=== PATIENT | male | born 1970 | race Caucasian/White ===

== ENCOUNTER 2017-09-21 15:53 | Inpatient (IN) | payer MEDICAID ==
[~2017-09-21] VITALS: Ht 160 cm; Wt 64.2 kg
[2017-09-21] MEDS ORDERED: SODIUM CHLORIDE FLUSH 10ML SYR IVF ONE (16:30)
[2017-09-21] MEDS ORDERED: ASPIRIN 81 MG TABLET CHEW PO ONE (16:30)
[2017-09-21 16:37] LABS: BASOPHILS % (AUTO) 0 % (0-1); EOSINOPHILS # (AUTO) 0.01 x10^3/uL (0-0.4); EOSINOPHILS % (AUTO) 0 % (1-7); LYMPHOCYTES # (AUTO) 0.66 x10^3/uL (1-3.4); LYMPHOCYTES % (AUTO) 6 % (22-44); MD NO; MEAN CORPUSCULAR HEMOGLOBIN 30.8 pg (27.5-34.5); MEAN CORPUSCULAR HGB CONC 34.5 g/dL (33.2-36.2); MEAN CORPUSCULAR VOLUME 89.2 fL (81-97); MEAN PLATELET VOLUME 7.8 fL (7.4-10.4); MONOCYTES # (AUTO) 0.71 x10^3/uL (0.2-0.8); MONOCYTES % (AUTO) 6 % (2-9); NEUTROPHILS # (AUTO) 9.79 x10^3/uL (1.8-6.8); NEUTROPHILS % (AUTO) 88 % (42-75); PLATELET COUNT 261 x10^3/uL (130-400); RED BLOOD COUNT 4.52 x10^6/uL (4.38-5.82); RED CELL DISTRIBUTION WIDTH 13.6 % (9.4-14.8)
[2017-09-21 16:50] LABS: ANION GAP 7 mmol/L (5-15); CALCIUM 8.5 mg/dL (8.5-10.1); CHLORIDE 97 mmol/L (98-107); CREATININE 0.87 mg/dL (0.7-1.3)
[2017-09-21 16:54] LABS: TROPONIN I < 0.015 ng/mL (0.000-0.045)
[2017-09-21] MEDS ORDERED: CEFTRIAXONE PMX 1GM/50ML 50 ML ONE (17:23)
[2017-09-21] MEDS ORDERED: ASPIRIN 81 MG TABLET CHEW ONE (17:24)
[2017-09-21] MEDS ORDERED: SODIUM CHLORIDE 0.9% 1,000 ML IV ONE (17:27)
[2017-09-21] MEDS ORDERED: SODIUM CHLORIDE 0.9% 1,000ML IVBOLUS ONE (17:30)
[2017-09-21] MEDS ORDERED: AZITHROMYCIN 500 MG in SODIUM CHLORIDE 0.9% 250 ML IVPB ONE (17:30)
[2017-09-21] MEDS ORDERED: CEFTRIAXONE PMX 1GM/50ML 50 ML IVPB ONE (17:30)
[2017-09-21] MEDS ORDERED: SODIUM CHLORIDE FLUSH 10ML SYR IVF PRN (17:30)
[2017-09-21] MEDS ORDERED: BISACODYL 10 MG SUPP PR PRN (18:00)
[2017-09-21] MEDS ORDERED: GUAIFENESIN/DM 200-20MG, 10ML UDC PO PRN (18:00)
[2017-09-21] MEDS ORDERED: CEFTRIAXONE PMX 1GM/50ML 50 ML IV SCH (18:00)
[2017-09-21] MEDS: NICOTINE 14MG/24 HR PATCH.TD24 TD SCH (18:00)
[2017-09-21] MEDS ORDERED: ONDANSETRON 2MG/ML, 2ML IVPush PRN (18:00)
[2017-09-21] MEDS ORDERED: ACETAMINOPHEN 325 MG TABLET PO PRN (18:00)
[2017-09-21] MEDS ORDERED: POLYETHYLENE GLYCOL 17 GM PACKET PO PRN (18:00)
[2017-09-21] MEDS: AZITHROMYCIN 500 MG in SODIUM CHLORIDE 0.9% 250 ML IV SCH (18:35)
[2017-09-21] MEDS: CEFTRIAXONE 1,000 MG in DEXTROSE 5% 50 ML IV SCH (22:00)
[2017-09-21 22:19] VITALS: BP 103/67
[2017-09-21] MEDS: SODIUM CHLORIDE 0.9% 1,000 ML IV SCH (23:00)
[2017-09-21] MEDS: HEPARIN 5,000 UNITS/ML, 1ML SQ SCH (23:20)
[2017-09-21] MEDS: KETOROLAC 30 MG/1 ML IVPush SCH (23:20)
[2017-09-22 00:48] LABS: MICROSCOPIC NOT IND
[2017-09-22 00:49] LABS: CULTURE INDICATED? NO
[2017-09-22 00:55] LABS: AMPHETAMINE SCREEN, URINE Positive (Negative); BARBITURATE SCREEN, URINE Negative (Negative); BENZODIAZEPINE SCREEN, URINE Negative (Negative); CANNABINOID SCREEN, URINE Positive (Negative); COCAINE SCREEN, URINE Negative (Negative); METHADONE SCREEN, URINE Negative (Negative); OPIATE SCREEN, URINE Negative (Negative)
[2017-09-22 03:41] VITALS: BP 96/67
[2017-09-22] MEDS ORDERED: PNEUMOCOCCAL 23 VACCINE IM-VACC ONE (05:30)
[2017-09-22] MEDS ORDERED: FLU VACC QS2017-18 (36MOS+) UP/PF 0.5 ML IM-VACC ONE (05:30)
[2017-09-22 05:37] LABS: BASOPHILS # (AUTO) 0.01 x10^3/uL (0-0.1); BASOPHILS % (AUTO) 0 % (0-1); EOSINOPHILS # (AUTO) 0.03 x10^3/uL (0-0.4); EOSINOPHILS % (AUTO) 0 % (1-7); LYMPHOCYTES # (AUTO) 1.24 x10^3/uL (1-3.4); LYMPHOCYTES % (AUTO) 11 % (22-44); MD NO; MEAN CORPUSCULAR HEMOGLOBIN 30.3 pg (27.5-34.5); MEAN CORPUSCULAR HGB CONC 33.3 g/dL (33.2-36.2); MEAN CORPUSCULAR VOLUME 90.9 fL (81-97); MEAN PLATELET VOLUME 8.2 fL (7.4-10.4); MONOCYTES # (AUTO) 1.25 x10^3/uL (0.2-0.8); MONOCYTES % (AUTO) 12 % (2-9); NEUTROPHILS # (AUTO) 8.37 x10^3/uL (1.8-6.8); NEUTROPHILS % (AUTO) 77 % (42-75); PLATELET COUNT 259 x10^3/uL (130-400); RED BLOOD COUNT 4.48 x10^6/uL (4.38-5.82); RED CELL DISTRIBUTION WIDTH 13.7 % (9.4-14.8)
[2017-09-22] MEDS: KETOROLAC 30 MG/1 ML IVPush SCH ×3 (05:47→18:20)
[2017-09-22 05:53] LABS: TROPONIN I < 0.015 ng/mL (0.000-0.045)
[2017-09-22 05:56] LABS: CHLORIDE 106 mmol/L (98-107)
[2017-09-22 06:08] LABS: ALANINE AMINOTRANSFERASE 31 U/L (12-78); ALBUMIN 2.5 g/dL (3.4-5.0); ALKALINE PHOSPHATASE 112 U/L (45-117); ANION GAP 9 mmol/L (5-15); BILIRUBIN,TOTAL 1.1 mg/dL (0.2-1.0); CALCIUM 8.3 mg/dL (8.5-10.1); CREATININE 0.77 mg/dL (0.7-1.3); TOTAL PROTEIN 6.9 g/dL (6.4-8.2)
[2017-09-22] MEDS: HEPARIN 5,000 UNITS/ML, 1ML SQ SCH ×2 (08:05→17:17)
[2017-09-22] MEDS: SENNA/DOCUSATE TABLET PO SCH (08:06)
[2017-09-22] MEDS: SODIUM CHLORIDE 0.9% 1,000 ML IV SCH ×2 (09:00→17:58)
[2017-09-22 10:26] VITALS: BP 96/66
[2017-09-22 12:23] VITALS: BP 100/66
[2017-09-22 12:31] LABS: ANION GAP 6 mmol/L (5-15); CALCIUM 7.9 mg/dL (8.5-10.1); CHLORIDE 108 mmol/L (98-107)
[2017-09-22 12:32] LABS: CREATININE 0.63 mg/dL (0.7-1.3)
[2017-09-22] MEDS: AZITHROMYCIN 500 MG in SODIUM CHLORIDE 0.9% 250 ML IV SCH (17:17)
[2017-09-22] MEDS: NICOTINE 14MG/24 HR PATCH.TD24 TD SCH (17:37)
[2017-09-22] MEDS: CEFTRIAXONE 1,000 MG in DEXTROSE 5% 50 ML IV SCH (18:20)
[2017-09-22 18:35] VITALS: BP 101/74
[2017-09-23] MEDS: HEPARIN 5,000 UNITS/ML, 1ML SQ SCH ×3 (01:13→17:21)
[2017-09-23] MEDS: KETOROLAC 30 MG/1 ML IVPush SCH ×4 (01:13→18:08)
[2017-09-23 01:42] VITALS: BP 110/75
[2017-09-23] MEDS: SODIUM CHLORIDE 0.9% 1,000 ML IV SCH ×2 (05:00→15:08)
[2017-09-23 05:21] LABS: BASOPHILS # (AUTO) 0.02 x10^3/uL (0-0.1); BASOPHILS % (AUTO) 0 % (0-1); EOSINOPHILS # (AUTO) 0.18 x10^3/uL (0-0.4); EOSINOPHILS % (AUTO) 3 % (1-7); LYMPHOCYTES # (AUTO) 1.12 x10^3/uL (1-3.4); LYMPHOCYTES % (AUTO) 16 % (22-44); MD NO; MEAN CORPUSCULAR HEMOGLOBIN 30.7 pg (27.5-34.5); MEAN CORPUSCULAR HGB CONC 33.9 g/dL (33.2-36.2); MEAN CORPUSCULAR VOLUME 90.7 fL (81-97); MEAN PLATELET VOLUME 8.1 fL (7.4-10.4); MONOCYTES % (AUTO) 7 % (2-9); NEUTROPHILS # (AUTO) 5.16 x10^3/uL (1.8-6.8); NEUTROPHILS % (AUTO) 74 % (42-75); PLATELET COUNT 266 x10^3/uL (130-400); RED BLOOD COUNT 4.28 x10^6/uL (4.38-5.82); RED CELL DISTRIBUTION WIDTH 14.1 % (9.4-14.8)
[2017-09-23 05:27] LABS: ANION GAP 6 mmol/L (5-15); CALCIUM 8.3 mg/dL (8.5-10.1); CHLORIDE 107 mmol/L (98-107); CREATININE 0.74 mg/dL (0.7-1.3)
[2017-09-23 07:40] VITALS: BP 99/61
[2017-09-23] MEDS: SENNA/DOCUSATE TABLET PO SCH (09:21)
[2017-09-23] MEDS ORDERED: AZIT500T5 PO (13:18)
[2017-09-23] MEDS ORDERED: AMOX1TAB64 PO (13:18)
[2017-09-23 13:50] VITALS: BP 107/86
[2017-09-23] MEDS: AZITHROMYCIN 500 MG in SODIUM CHLORIDE 0.9% 250 ML IV SCH (13:57)
[2017-09-23 14:46] VITALS: BP 125/70
[2017-09-23] MEDS: CEFTRIAXONE 1,000 MG in DEXTROSE 5% 50 ML IV SCH (15:08)
[2017-09-23 17:55] VITALS: BP 103/70
[2017-09-23] MEDS: NICOTINE 14MG/24 HR PATCH.TD24 TD SCH (18:08)
== END 2017-09-23 18:10 | disposition home or self-care (01) | DRG 871 ==
LOC: ED 17:26 → EDIP 17:27 → ED 17:30 → 4NOR 21:45
PROVIDERS: ADMIT Hospitalist; ATTEND Hospitalist
DX: A41.9 Sepsis, unspecified organism (principal); J18.1 Lobar pneumonia, unspecified organism; E44.0 Moderate protein-calorie malnutrition; E87.1 Hypo-osmolality and hyponatremia; F12.90 Cannabis use, unspecified, uncomplicated; F15.90 Other stimulant use, unspecified, uncomplicated; F17.210 Nicotine dependence, cigarettes, uncomplicated; I45.10 Unspecified right bundle-branch block; F19.10 Other psychoactive substance abuse, uncomplicated; Z80.1 Family history of malignant neoplasm of trachea, bronchus and lung; Z59.0 Homelessness; Z79.82 Long term (current) use of aspirin; Z83.3 Family history of diabetes mellitus; Z23 Encounter for immunization; Z68.25 Body mass index [BMI] 25.0-25.9, adult
CPT/HCPCS: 36415; 71045; 80048; 80053; 80307; 81003; 82040; 83605; 84145; 84484; 85025; 87040; 90686; 90732; 93005; 99285; J0456; J0696; J1644; J1885; J7030; J7050

== ENCOUNTER 2018-07-24 15:49 | Inpatient (IN) | payer MEDICAID ==
[~2018-07-24] VITALS: Ht 162.6 cm; Wt 64.5 kg
[~2018-07-24 15:49] MED LIST: AMOX1TAB64 PO; AZIT500T5 PO
[2018-07-24] MEDS ORDERED: ALBUTEROL SULFATE 2.5 MG/3 ML ONE (16:32)
[2018-07-24 16:35] LABS: BASOPHILS % (AUTO) 0 % (0-1); EOSINOPHILS % (AUTO) 0 % (1-7); LYMPHOCYTES # (AUTO) 0.41 x10^3/uL (1-3.4); LYMPHOCYTES % (AUTO) 8 % (22-44); MD NO; MEAN CORPUSCULAR HEMOGLOBIN 29.3 pg (27.5-34.5); MEAN CORPUSCULAR HGB CONC 34.1 g/dL (33.2-36.2); MEAN CORPUSCULAR VOLUME 85.8 fL (81-97); MEAN PLATELET VOLUME 8.1 fL (7.4-10.4); MONOCYTES # (AUTO) 0.06 x10^3/uL (0.2-0.8); MONOCYTES % (AUTO) 1 % (2-9); NEUTROPHILS # (AUTO) 4.43 x10^3/uL (1.8-6.8); NEUTROPHILS % (AUTO) 90 % (42-75); PLATELET COUNT 226 x10^3/uL (130-400); RED BLOOD COUNT 4.95 x10^6/uL (4.38-5.82); RED CELL DISTRIBUTION WIDTH 15.4 % (9.4-14.8)
[2018-07-24 16:43] LABS: ANION GAP 11 mmol/L (5-15); CALCIUM 8.2 mg/dL (8.5-10.1); CHLORIDE 94 mmol/L (98-107); CREATININE 1.82 mg/dL (0.7-1.3)
[2018-07-24] MEDS ORDERED: CEFTRIAXONE PMX 1GM/50ML 50 ML IV ONE (17:00)
[2018-07-24] MEDS ORDERED: CEFTRIAXONE PMX 1GM/50ML 50 ML ONE (17:05)
[2018-07-24] MEDS ORDERED: SODIUM CHLORIDE 0.9% 1,000ML IVBOLUS ONE ×2 (17:30→20:00)
[2018-07-24] MEDS ORDERED: OMNIPAQUE 350 MG/ML, 100ML BOTTLE ONE (17:40)
[2018-07-24] MEDS ORDERED: ONDANSETRON 2MG/ML, 2ML IVPush PRN (18:00)
[2018-07-24] MEDS: LACTATED RINGERS 1,000 ML IV SCH (18:00)
[2018-07-24] MEDS ORDERED: LABETALOL 5MG/ML, 20ML IVPush PRN (18:00)
[2018-07-24] MEDS ORDERED: ONDANSETRON ODT 4 MG PO PRN (18:00)
[2018-07-24] MEDS ORDERED: POLYETHYLENE GLYCOL 17 GM PACKET PO PRN (18:00)
[2018-07-24 18:18] VITALS: BP 103/65
[2018-07-24 18:23] VITALS: BP 103/65
[2018-07-24] MEDS ORDERED: VANCOMYCIN PER PHARMACY MC PRN (18:30)
[2018-07-24] MEDS ORDERED: NICOTINE 14MG/24 HR PATCH.TD24 TD ONE (18:30)
[2018-07-24] MEDS ORDERED: CEFTRIAXONE PMX 2GM/50ML 50 ML IV SCH (18:30)
[2018-07-24] MEDS: PIPERACILLIN/TAZO/PMX 3.375GM 50 ML IV SCH (18:43)
[2018-07-24] MEDS: methylPREDNISolone SOD SUCC 125 MG/2 ML IVPush SCH (18:43)
[2018-07-24] MEDS ORDERED: PHARMACOKINETIC CONSULTATION MC ONE (19:30)
[2018-07-24] MEDS ORDERED: PHARMACOKINETIC MONITORING MC PRN (19:30)
[2018-07-24 19:45] VITALS: BP 76/45
[2018-07-24] MEDS ORDERED: VANCOMYCIN PMX 1GM/200ML 200 ML IVPB SCH (20:00)
[2018-07-24] MEDS: ACETAMINOPHEN 325 MG TABLET PO PRN (20:13)
[2018-07-24 20:24] VITALS: BP 90/63
[2018-07-24] MEDS ORDERED: DOXYCYCLINE 100MG TABLET PO SCH (21:00)
[2018-07-24 21:09] VITALS: BP 90/62
[2018-07-25] MEDS: PIPERACILLIN/TAZO/PMX 3.375GM 50 ML IV SCH ×4 (00:33→18:40)
[2018-07-25 02:26] VITALS: BP 97/68
[2018-07-25] MEDS: methylPREDNISolone SOD SUCC 125 MG/2 ML IVPush SCH (02:29)
[2018-07-25 05:26] LABS: MEAN CORPUSCULAR HEMOGLOBIN 29.1 pg (27.5-34.5); MEAN CORPUSCULAR HGB CONC 33.9 g/dL (33.2-36.2); MEAN PLATELET VOLUME 7.9 fL (7.4-10.4); PLATELET COUNT 201 x10^3/uL (130-400); RED BLOOD COUNT 4.43 x10^6/uL (4.38-5.82); RED CELL DISTRIBUTION WIDTH 15.4 % (9.4-14.8)
[2018-07-25 05:30] LABS: ALANINE AMINOTRANSFERASE 14 U/L (12-78); ALBUMIN 2.5 g/dL (3.4-5.0); ANION GAP 8 mmol/L (5-15); CALCIUM 7.9 mg/dL (8.5-10.1); CHLORIDE 102 mmol/L (98-107)
[2018-07-25 05:32] LABS: ALKALINE PHOSPHATASE 49 U/L (45-117); BILIRUBIN,TOTAL 0.6 mg/dL (0.2-1.0); TOTAL PROTEIN 6.4 g/dL (6.4-8.2)
[2018-07-25 06:02] LABS: MD YES
[2018-07-25 06:06] LABS: BAND#(MANUAL) 3.03 x10^3/uL; BANDS%(MANUAL) 37 % (0-7); LYMPH#(MANUAL) 0.74 x10^3/uL (1-3.4); LYMPHS% (MANUAL) 9 % (22-44); MONOS#(MANUAL) 0.08 x10^3/uL (0.3-2.7); MONOS% (MANUAL) 1 % (2-9); SEG#(MANUAL) 4.35 x10^3/uL (1.8-6.8); SEGS% (MANUAL) 53 % (42-75)
[2018-07-25 06:10] LABS: <PLT MORPHOLOGY> NORMAL PLT MORPH; TOXIC GRAN 1+
[2018-07-25 06:11] LABS: <PLATELET ESTIMATE> ADEQUATE
[2018-07-25] MEDS: LACTATED RINGERS 1,000 ML IV SCH (07:12)
[2018-07-25 07:52] VITALS: BP 90/61
[2018-07-25] MEDS: ALBUTEROL/IPRATROPIUM 2.5MG/0.5MG, 3 ML NPPB SCH ×4 (08:00→20:00)
[2018-07-25] MEDS: SENNA/DOCUSATE TABLET PO SCH (08:07)
[2018-07-25] MEDS: PANTOPRAZOLE 40 MG IV IVPush SCH (08:07)
[2018-07-25 08:20] LABS: RAPID INFLUENZA A Negative (Negative); RAPID INFLUENZA B Negative (Negative)
[2018-07-25] MEDS ORDERED: LACTATED RINGERS 1,000 ML IV SCH ×2 (09:00→18:00)
[2018-07-25 09:32] VITALS: BP 87/56
[2018-07-25] MEDS: SODIUM CHLORIDE 0.9% 1,000 ML IV SCH ×4 (10:00→20:15)
[2018-07-25 10:15] LABS: MICROSCOPIC INDICATED
[2018-07-25 10:21] LABS: AMPHETAMINE SCREEN, URINE Positive (Negative); BARBITURATE SCREEN, URINE Negative (Negative); BENZODIAZEPINE SCREEN, URINE Negative (Negative); CANNABINOID SCREEN, URINE Negative (Negative); COCAINE SCREEN, URINE Negative (Negative); METHADONE SCREEN, URINE Negative (Negative); OPIATE SCREEN, URINE Negative (Negative)
[2018-07-25 10:22] LABS: CULTURE INDICATED? NO
[2018-07-25 12:20] VITALS: BP 97/61
[2018-07-25 13:39] VITALS: BP 106/72
[2018-07-25] MEDS: VANCOMYCIN PMX 1GM/200ML 200 ML IVPB SCH (14:31)
[2018-07-25 19:57] VITALS: BP 102/66
[2018-07-26] MEDS: PIPERACILLIN/TAZO/PMX 3.375GM 50 ML IV SCH ×4 (00:43→18:07)
[2018-07-26 01:13] VITALS: BP 100/67
[2018-07-26] MEDS: VANCOMYCIN PMX 1GM/200ML 200 ML IVPB SCH ×2 (02:17→14:59)
[2018-07-26] MEDS: SODIUM CHLORIDE 0.9% 1,000 ML IV SCH ×2 (06:17→13:23)
[2018-07-26] MEDS: ALBUTEROL/IPRATROPIUM 2.5MG/0.5MG, 3 ML NPPB SCH ×4 (07:00→20:10)
[2018-07-26 07:30] VITALS: BP 113/76
[2018-07-26] MEDS: PANTOPRAZOLE 40 MG IV IVPush SCH (08:49)
[2018-07-26] MEDS: SENNA/DOCUSATE TABLET PO SCH (08:49)
[2018-07-26] MEDS: HEPARIN 5,000 UNITS/ML, 1ML SQ SCH ×2 (08:56→16:53)
[2018-07-26] MEDS: LACTOBACILLUS CHEW TABLET PO SCH ×2 (08:57→21:58)
[2018-07-26 09:48] LABS: ANION GAP 6 mmol/L (5-15); CALCIUM 8.5 mg/dL (8.5-10.1); CHLORIDE 111 mmol/L (98-107); CREATININE 0.81 mg/dL (0.7-1.3)
[2018-07-26 12:43] VITALS: BP 118/77
[2018-07-26 20:07] VITALS: BP 107/73
[2018-07-27] MEDS: PIPERACILLIN/TAZO/PMX 3.375GM 50 ML IV SCH ×4 (00:47→19:17)
[2018-07-27] MEDS: HEPARIN 5,000 UNITS/ML, 1ML SQ SCH ×4 (00:47→23:59)
[2018-07-27] MEDS: SODIUM CHLORIDE 0.9% 1,000 ML IV SCH ×4 (00:48→23:58)
[2018-07-27] MEDS: VANCOMYCIN PMX 1GM/200ML 200 ML IVPB SCH ×2 (02:21→13:56)
[2018-07-27 02:32] VITALS: BP 119/78
[2018-07-27 05:57] LABS: ANION GAP 5 mmol/L (5-15); CALCIUM 8.6 mg/dL (8.5-10.1); CHLORIDE 108 mmol/L (98-107); CREATININE 0.68 mg/dL (0.7-1.3)
[2018-07-27 06:25] LABS: BASOPHILS # (AUTO) 0.02 x10^3/uL (0-0.1); BASOPHILS % (AUTO) 0 % (0-1); EOSINOPHILS % (AUTO) 0 % (1-7); LYMPHOCYTES # (AUTO) 1.23 x10^3/uL (1-3.4); LYMPHOCYTES % (AUTO) 16 % (22-44); MD NO; MEAN CORPUSCULAR HGB CONC 33.6 g/dL (33.2-36.2); MEAN CORPUSCULAR VOLUME 86.3 fL (81-97); MEAN PLATELET VOLUME 8.5 fL (7.4-10.4); MONOCYTES # (AUTO) 0.42 x10^3/uL (0.2-0.8); MONOCYTES % (AUTO) 5 % (2-9); NEUTROPHILS # (AUTO) 6.06 x10^3/uL (1.8-6.8); NEUTROPHILS % (AUTO) 79 % (42-75); PLATELET COUNT 243 x10^3/uL (130-400); RED BLOOD COUNT 3.95 x10^6/uL (4.38-5.82); RED CELL DISTRIBUTION WIDTH 15.4 % (9.4-14.8)
[2018-07-27] MEDS: ALBUTEROL/IPRATROPIUM 2.5MG/0.5MG, 3 ML NPPB SCH ×4 (07:00→20:00)
[2018-07-27 07:30] VITALS: BP 141/89
[2018-07-27] MEDS: SENNA/DOCUSATE TABLET PO SCH (09:00)
[2018-07-27] MEDS: PANTOPRAZOLE 40 MG IV IVPush SCH (09:45)
[2018-07-27] MEDS: LACTOBACILLUS CHEW TABLET PO SCH ×2 (09:45→20:38)
[2018-07-27] MEDS: NICOTINE 14MG/24 HR PATCH.TD24 TD SCH (12:05)
[2018-07-27 15:34] VITALS: BP 134/90
[2018-07-27 19:53] VITALS: BP 139/90
[2018-07-28] MEDS: PIPERACILLIN/TAZO/PMX 3.375GM 50 ML IV SCH ×4 (00:34→18:31)
[2018-07-28 01:16] VITALS: BP 154/93
[2018-07-28] MEDS: VANCOMYCIN PMX 1GM/200ML 200 ML IVPB SCH (02:40)
[2018-07-28 07:37] VITALS: BP 133/83
[2018-07-28] MEDS: ALBUTEROL/IPRATROPIUM 2.5MG/0.5MG, 3 ML NPPB SCH ×4 (07:45→19:57)
[2018-07-28] MEDS: SENNA/DOCUSATE TABLET PO SCH (09:00)
[2018-07-28] MEDS: HEPARIN 5,000 UNITS/ML, 1ML SQ SCH ×2 (09:25→16:27)
[2018-07-28] MEDS: LACTOBACILLUS CHEW TABLET PO SCH ×2 (09:25→21:49)
[2018-07-28] MEDS: PANTOPRAZOLE 40 MG IV IVPush SCH (09:25)
[2018-07-28] MEDS: SODIUM CHLORIDE 0.9% 1,000 ML IV SCH ×2 (09:31→16:28)
[2018-07-28] MEDS: NICOTINE 14MG/24 HR PATCH.TD24 TD SCH (12:30)
[2018-07-28 12:57] VITALS: BP 139/92
[2018-07-28 19:38] VITALS: BP 133/94
[2018-07-29] MEDS: HEPARIN 5,000 UNITS/ML, 1ML SQ SCH ×3 (00:09→16:02)
[2018-07-29] MEDS: PIPERACILLIN/TAZO/PMX 3.375GM 50 ML IV SCH ×3 (00:09→18:59)
[2018-07-29] MEDS: SODIUM CHLORIDE 0.9% 1,000 ML IV SCH ×2 (00:09→06:15)
[2018-07-29 02:20] VITALS: BP 151/93
[2018-07-29] MEDS: ALBUTEROL/IPRATROPIUM 2.5MG/0.5MG, 3 ML NPPB SCH (07:48)
[2018-07-29] MEDS: PANTOPRAZOLE 40 MG IV IVPush SCH (07:56)
[2018-07-29] MEDS: SENNA/DOCUSATE TABLET PO SCH (07:57)
[2018-07-29] MEDS: LACTOBACILLUS CHEW TABLET PO SCH ×2 (07:57→20:57)
[2018-07-29 08:00] VITALS: BP 136/92
[2018-07-29] MEDS: NICOTINE 14MG/24 HR PATCH.TD24 TD SCH (11:33)
[2018-07-29 13:25] VITALS: BP 136/77
[2018-07-29] MEDS ORDERED: PIPERACILLIN/TAZO/PMX 3.375GM 50 ML IV ONE (13:30)
[2018-07-29 19:14] VITALS: BP 151/96
[2018-07-30] MEDS: HEPARIN 5,000 UNITS/ML, 1ML SQ SCH ×3 (00:05→16:31)
[2018-07-30] MEDS: PIPERACILLIN/TAZO/PMX 3.375GM 50 ML IV SCH ×4 (00:05→18:34)
[2018-07-30 01:39] VITALS: BP 150/94
[2018-07-30] MEDS ORDERED: ALBUTEROL/IPRATROPIUM 2.5MG/0.5MG, 3 ML NPPB SCH (07:00)
[2018-07-30 07:10] VITALS: BP 166/96
[2018-07-30] MEDS: SENNA/DOCUSATE TABLET PO SCH (09:00)
[2018-07-30] MEDS: PANTOPRAZOLE 40 MG IV IVPush SCH (09:06)
[2018-07-30] MEDS: LACTOBACILLUS CHEW TABLET PO SCH ×2 (09:06→20:26)
[2018-07-30] MEDS: NICOTINE 14MG/24 HR PATCH.TD24 TD SCH (11:36)
[2018-07-30 12:00] VITALS: BP 150/91
[2018-07-30 19:47] VITALS: BP 136/87
[2018-07-31] MEDS: HEPARIN 5,000 UNITS/ML, 1ML SQ SCH ×3 (01:03→16:00)
[2018-07-31] MEDS: PIPERACILLIN/TAZO/PMX 3.375GM 50 ML IV SCH ×4 (01:03→18:27)
[2018-07-31 01:47] VITALS: BP 128/81
[2018-07-31] MEDS ORDERED: ALBUTEROL/IPRATROPIUM 2.5MG/0.5MG, 3 ML NPPB PRN (04:00)
[2018-07-31 07:07] VITALS: BP 105/69
[2018-07-31] MEDS: PANTOPRAZOLE 40 MG IV IVPush SCH (07:30)
[2018-07-31] MEDS: SENNA/DOCUSATE TABLET PO SCH (08:05)
[2018-07-31] MEDS: LACTOBACILLUS CHEW TABLET PO SCH ×2 (08:11→21:19)
[2018-07-31] MEDS: NICOTINE 14MG/24 HR PATCH.TD24 TD SCH (11:35)
[2018-07-31 12:27] VITALS: BP 115/77
[2018-07-31 19:51] VITALS: BP 109/72
[2018-08-01] MEDS: PIPERACILLIN/TAZO/PMX 3.375GM 50 ML IV SCH ×4 (01:02→18:06)
[2018-08-01 01:47] VITALS: BP 132/78
[2018-08-01] MEDS: PANTOPROZOLE 40MG TABLET PO SCH (06:21)
[2018-08-01] MEDS: HEPARIN 5,000 UNITS/ML, 1ML SQ SCH ×3 (08:00→16:00)
[2018-08-01 08:30] VITALS: BP 118/73
[2018-08-01] MEDS: SENNA/DOCUSATE TABLET PO SCH (09:00)
[2018-08-01] MEDS: LACTOBACILLUS CHEW TABLET PO SCH ×2 (10:03→20:02)
[2018-08-01] MEDS: NICOTINE 14MG/24 HR PATCH.TD24 TD SCH (10:04)
[2018-08-01 11:15] LABS: % IRON SATURATION 13 % (20-55); IRON LEVEL 60 mcg/dL (65-175); TOTAL IRON BINDING CAPACITY 463 mcg/dL (250-450)
[2018-08-01] MEDS: IRON SUCROSE COMPLEX 100MG/5ML IV SCH (13:53)
[2018-08-01 14:30] VITALS: BP 113/71
[2018-08-01 19:49] VITALS: BP 122/80
[2018-08-01] MEDS ORDERED: EYE WASH SOLUTION 120ML EACHEYE PRN (20:30)
[2018-08-02] MEDS: PIPERACILLIN/TAZO/PMX 3.375GM 50 ML IV SCH ×6 (00:22→23:20)
[2018-08-02 00:59] VITALS: BP 106/62
[2018-08-02] MEDS: ACETAMINOPHEN 325 MG TABLET PO PRN ×3 (02:56→18:35)
[2018-08-02] MEDS: PANTOPROZOLE 40MG TABLET PO SCH (06:06)
[2018-08-02 07:30] VITALS: BP 101/61
[2018-08-02] MEDS: HEPARIN 5,000 UNITS/ML, 1ML SQ SCH ×3 (08:00→16:00)
[2018-08-02] MEDS: IRON SUCROSE COMPLEX 100MG/5ML IV SCH (08:26)
[2018-08-02] MEDS: LACTOBACILLUS CHEW TABLET PO SCH ×2 (08:26→21:31)
[2018-08-02] MEDS: SENNA/DOCUSATE TABLET PO SCH (08:34)
[2018-08-02] MEDS: NICOTINE 14MG/24 HR PATCH.TD24 TD SCH (13:16)
[2018-08-02 14:21] LABS: CULTURE INDICATED? NO; MICROSCOPIC AUTO
[2018-08-02 14:30] VITALS: BP 102/66
[2018-08-02] MEDS: KETOROLAC 30 MG/1 ML IVPush PRN (14:38)
[2018-08-02 14:53] LABS: ALANINE AMINOTRANSFERASE 30 U/L (12-78); ALBUMIN 2.8 g/dL (3.4-5.0); ANION GAP 8 mmol/L (5-15); CALCIUM 8.2 mg/dL (8.5-10.1); CHLORIDE 103 mmol/L (98-107); CREATININE 0.95 mg/dL (0.7-1.3)
[2018-08-02 14:55] LABS: ALKALINE PHOSPHATASE 92 U/L (45-117); BILIRUBIN,TOTAL 0.2 mg/dL (0.2-1.0); TOTAL PROTEIN 7.3 g/dL (6.4-8.2)
[2018-08-02 14:58] LABS: BASOPHILS # (AUTO) 0.02 x10^3/uL (0-0.1); BASOPHILS % (AUTO) 0 % (0-1); EOSINOPHILS # (AUTO) 0.06 x10^3/uL (0-0.4); EOSINOPHILS % (AUTO) 0 % (1-7); LYMPHOCYTES % (AUTO) 7 % (22-44); MD NO; MEAN CORPUSCULAR HEMOGLOBIN 28.6 pg (27.5-34.5); MEAN CORPUSCULAR HGB CONC 33.6 g/dL (33.2-36.2); MEAN CORPUSCULAR VOLUME 85.1 fL (81-97); MONOCYTES # (AUTO) 0.87 x10^3/uL (0.2-0.8); MONOCYTES % (AUTO) 6 % (2-9); NEUTROPHILS % (AUTO) 86 % (42-75); PLATELET COUNT 486 x10^3/uL (130-400); RED BLOOD COUNT 4.49 x10^6/uL (4.38-5.82); RED CELL DISTRIBUTION WIDTH 15.4 % (9.4-14.8)
[2018-08-02 19:35] VITALS: BP 115/71
[2018-08-03] MEDS: HEPARIN 5,000 UNITS/ML, 1ML SQ SCH ×3 (00:35→16:00)
[2018-08-03 01:06] VITALS: BP 105/70
[2018-08-03] MEDS: KETOROLAC 30 MG/1 ML IVPush PRN ×3 (02:25→21:20)
[2018-08-03] MEDS: ACETAMINOPHEN 325 MG TABLET PO PRN (02:26)
[2018-08-03] MEDS: PIPERACILLIN/TAZO/PMX 3.375GM 50 ML IV SCH (05:17)
[2018-08-03] MEDS: PANTOPROZOLE 40MG TABLET PO SCH (06:26)
[2018-08-03] MEDS: SENNA/DOCUSATE TABLET PO SCH (08:08)
[2018-08-03] MEDS: LACTOBACILLUS CHEW TABLET PO SCH ×2 (08:09→19:53)
[2018-08-03] MEDS: IRON SUCROSE COMPLEX 100MG/5ML IV SCH (08:09)
[2018-08-03 08:27] LABS: BASOPHILS # (AUTO) 0.03 x10^3/uL (0-0.1); BASOPHILS % (AUTO) 0 % (0-1); EOSINOPHILS % (AUTO) 1 % (1-7); LYMPHOCYTES # (AUTO) 1.35 x10^3/uL (1-3.4); LYMPHOCYTES % (AUTO) 11 % (22-44); MD NO; MEAN CORPUSCULAR HEMOGLOBIN 28.4 pg (27.5-34.5); MEAN CORPUSCULAR HGB CONC 33.5 g/dL (33.2-36.2); MEAN CORPUSCULAR VOLUME 84.8 fL (81-97); MEAN PLATELET VOLUME 6.8 fL (7.4-10.4); MONOCYTES # (AUTO) 0.89 x10^3/uL (0.2-0.8); MONOCYTES % (AUTO) 7 % (2-9); NEUTROPHILS # (AUTO) 9.62 x10^3/uL (1.8-6.8); NEUTROPHILS % (AUTO) 80 % (42-75); PLATELET COUNT 508 x10^3/uL (130-400); RED BLOOD COUNT 4.53 x10^6/uL (4.38-5.82); RED CELL DISTRIBUTION WIDTH 16.1 % (9.4-14.8)
[2018-08-03 08:30] VITALS: BP 114/71
[2018-08-03 08:37] LABS: ALBUMIN 2.6 g/dL (3.4-5.0); ANION GAP 5 mmol/L (5-15); CALCIUM 9.1 mg/dL (8.5-10.1); CHLORIDE 106 mmol/L (98-107)
[2018-08-03 08:41] LABS: ALANINE AMINOTRANSFERASE 26 U/L (12-78); ALKALINE PHOSPHATASE 75 U/L (45-117); BILIRUBIN,TOTAL 0.4 mg/dL (0.2-1.0); CREATININE 0.93 mg/dL (0.7-1.3); TOTAL PROTEIN 6.7 g/dL (6.4-8.2)
[2018-08-03] MEDS: CEFTRIAXONE PMX 1GM/50ML 50 ML IV SCH (11:40)
[2018-08-03] MEDS: NICOTINE 14MG/24 HR PATCH.TD24 TD SCH (11:41)
[2018-08-03 14:00] VITALS: BP 100/64
[2018-08-03 18:30] VITALS: BP 102/65
[2018-08-04 00:55] VITALS: BP 118/76
[2018-08-04] MEDS: PANTOPROZOLE 40MG TABLET PO SCH (05:52)
[2018-08-04 06:05] LABS: BASOPHILS # (AUTO) 0.03 x10^3/uL (0-0.1); BASOPHILS % (AUTO) 1 % (0-1); EOSINOPHILS # (AUTO) 0.13 x10^3/uL (0-0.4); EOSINOPHILS % (AUTO) 2 % (1-7); LYMPHOCYTES # (AUTO) 1.38 x10^3/uL (1-3.4); LYMPHOCYTES % (AUTO) 18 % (22-44); MD NO; MEAN CORPUSCULAR HEMOGLOBIN 29.1 pg (27.5-34.5); MEAN CORPUSCULAR HGB CONC 33.9 g/dL (33.2-36.2); MEAN CORPUSCULAR VOLUME 85.7 fL (81-97); MONOCYTES # (AUTO) 0.71 x10^3/uL (0.2-0.8); MONOCYTES % (AUTO) 9 % (2-9); NEUTROPHILS # (AUTO) 5.34 x10^3/uL (1.8-6.8); NEUTROPHILS % (AUTO) 70 % (42-75); PLATELET COUNT 507 x10^3/uL (130-400); RED BLOOD COUNT 4.22 x10^6/uL (4.38-5.82); RED CELL DISTRIBUTION WIDTH 15.8 % (9.4-14.8)
[2018-08-04 06:25] LABS: ALBUMIN 2.8 g/dL (3.4-5.0); ANION GAP 8 mmol/L (5-15); CHLORIDE 105 mmol/L (98-107)
[2018-08-04 06:30] LABS: ALANINE AMINOTRANSFERASE 27 U/L (12-78); ALKALINE PHOSPHATASE 80 U/L (45-117); BILIRUBIN,TOTAL 0.1 mg/dL (0.2-1.0); CREATININE 0.85 mg/dL (0.7-1.3); TOTAL PROTEIN 7.1 g/dL (6.4-8.2)
[2018-08-04 07:55] VITALS: BP 135/79
[2018-08-04] MEDS: HEPARIN 5,000 UNITS/ML, 1ML SQ SCH ×4 (08:00→22:24)
[2018-08-04] MEDS: SENNA/DOCUSATE TABLET PO SCH (08:02)
[2018-08-04] MEDS: IRON SUCROSE COMPLEX 100MG/5ML IV SCH (08:30)
[2018-08-04] MEDS: LACTOBACILLUS CHEW TABLET PO SCH ×2 (08:30→19:47)
[2018-08-04] MEDS: CEFTRIAXONE PMX 1GM/50ML 50 ML IV SCH (11:16)
[2018-08-04] MEDS: NICOTINE 14MG/24 HR PATCH.TD24 TD SCH (11:21)
[2018-08-04 13:30] VITALS: BP 147/89
[2018-08-04 19:40] VITALS: BP 141/90
[2018-08-05 01:36] VITALS: BP 130/84
[2018-08-05] MEDS: KETOROLAC 30 MG/1 ML IVPush PRN ×2 (03:09→10:06)
[2018-08-05 05:32] LABS: BASOPHILS # (AUTO) 0.05 x10^3/uL (0-0.1); BASOPHILS % (AUTO) 1 % (0-1); EOSINOPHILS # (AUTO) 0.17 x10^3/uL (0-0.4); EOSINOPHILS % (AUTO) 2 % (1-7); LYMPHOCYTES # (AUTO) 1.41 x10^3/uL (1-3.4); LYMPHOCYTES % (AUTO) 17 % (22-44); MD NO; MEAN CORPUSCULAR HGB CONC 34.1 g/dL (33.2-36.2); MEAN CORPUSCULAR VOLUME 85.2 fL (81-97); MEAN PLATELET VOLUME 6.8 fL (7.4-10.4); MONOCYTES # (AUTO) 0.89 x10^3/uL (0.2-0.8); MONOCYTES % (AUTO) 11 % (2-9); NEUTROPHILS # (AUTO) 5.83 x10^3/uL (1.8-6.8); NEUTROPHILS % (AUTO) 70 % (42-75); PLATELET COUNT 635 x10^3/uL (130-400); RED BLOOD COUNT 4.56 x10^6/uL (4.38-5.82); RED CELL DISTRIBUTION WIDTH 15.9 % (9.4-14.8)
[2018-08-05] MEDS: PANTOPROZOLE 40MG TABLET PO SCH (05:32)
[2018-08-05 05:45] LABS: ALBUMIN 2.8 g/dL (3.4-5.0); ANION GAP 7 mmol/L (5-15); CALCIUM 9.4 mg/dL (8.5-10.1); CHLORIDE 105 mmol/L (98-107); CREATININE 0.85 mg/dL (0.7-1.3)
[2018-08-05 07:20] VITALS: BP 113/78
[2018-08-05] MEDS: HEPARIN 5,000 UNITS/ML, 1ML SQ SCH ×2 (08:00→16:00)
[2018-08-05] MEDS: SENNA/DOCUSATE TABLET PO SCH (09:00)
[2018-08-05] MEDS: LACTOBACILLUS CHEW TABLET PO SCH ×2 (10:05→22:43)
[2018-08-05] MEDS: IRON SUCROSE COMPLEX 100MG/5ML IV SCH (10:05)
[2018-08-05] MEDS: CEFTRIAXONE PMX 1GM/50ML 50 ML IV SCH (12:28)
[2018-08-05] MEDS: NICOTINE 14MG/24 HR PATCH.TD24 TD SCH (12:28)
[2018-08-05 12:50] VITALS: BP 121/76
[2018-08-05 19:30] VITALS: BP 128/77
[2018-08-06 01:33] VITALS: BP 105/67
[2018-08-06] MEDS: KETOROLAC 30 MG/1 ML IVPush PRN ×3 (04:06→19:52)
[2018-08-06] MEDS: PANTOPROZOLE 40MG TABLET PO SCH (04:10)
[2018-08-06 07:16] VITALS: BP 111/70
[2018-08-06] MEDS: HEPARIN 5,000 UNITS/ML, 1ML SQ SCH ×3 (08:00→15:51)
[2018-08-06] MEDS: SENNA/DOCUSATE TABLET PO SCH (08:52)
[2018-08-06] MEDS: IRON SUCROSE COMPLEX 100MG/5ML IV SCH (10:37)
[2018-08-06] MEDS: LACTOBACILLUS CHEW TABLET PO SCH ×2 (10:37→19:52)
[2018-08-06] MEDS: CEFTRIAXONE PMX 1GM/50ML 50 ML IV SCH (11:50)
[2018-08-06] MEDS: NICOTINE 14MG/24 HR PATCH.TD24 TD SCH (11:51)
[2018-08-06 12:39] VITALS: BP 103/69
[2018-08-06 19:05] VITALS: BP 121/74
[2018-08-07] MEDS: HEPARIN 5,000 UNITS/ML, 1ML SQ SCH
[2018-08-07 01:49] VITALS: BP 122/75
[2018-08-07] MEDS: PANTOPROZOLE 40MG TABLET PO SCH (06:04)
[2018-08-07] MEDS ORDERED: CEFTRIAXONE PMX 1GM/50ML 50 ML IV SCH (06:30)
[2018-08-07] MEDS ORDERED: PANT40TA5 PO (06:40)
[2018-08-07 07:29] VITALS: BP 111/64
[2018-08-07] MEDS: KETOROLAC 30 MG/1 ML IVPush PRN (09:04)
[2018-08-07] MEDS: IRON SUCROSE COMPLEX 100MG/5ML IV SCH (09:05)
[2018-08-07] MEDS: NICOTINE 14MG/24 HR PATCH.TD24 TD SCH (10:40)
== END 2018-08-07 11:40 | DRG 871 ==
LOC: ED 16:30 → EDIP 17:06 → 4WST 18:11 → 3NE 07-30 23:03 → DCLOUNGE 08-07 11:30
PROVIDERS: ADMIT Hospitalist; ATTEND Hospitalist
DX: A41.9 Sepsis, unspecified organism (principal); E43 Unspecified severe protein-calorie malnutrition; J15.4 Pneumonia due to other streptococci; J96.01 Acute respiratory failure with hypoxia; N17.0 Acute kidney failure with tubular necrosis; R65.21 Severe sepsis with septic shock; G03.9 Meningitis, unspecified; J18.1 Lobar pneumonia, unspecified organism; B95.3 Streptococcus pneumoniae as the cause of diseases classified elsewhere; D64.9 Anemia, unspecified; Z68.24 Body mass index [BMI] 24.0-24.9, adult; F12.90 Cannabis use, unspecified, uncomplicated; F17.210 Nicotine dependence, cigarettes, uncomplicated; I10 Essential (primary) hypertension; J43.2 Centrilobular emphysema; Z82.49 Family history of ischemic heart disease and other diseases of the circulatory system; Z59.0 Homelessness
CPT/HCPCS: 36415; 84145; 87400; 99285; J7620; 71045; 71275; 80048; 80053; 80202; 80307; 81001; 82040; 83540; 83550; 83605; 83735; 83880; 84100; 85025; 85379; 87040; 87070; 87077; 87181; 87205; 90656; 93005; 94640; 94660; G0378; J0696; J1644; J1756; J1885; J2543; J3370; Q0162; Q9967; C9113; J2930; J7030; J7120; J7512

== ENCOUNTER 2020-10-02 08:43 | Emergency (ER) | payer MEDICAID ==
[~2020-10-02] VITALS: Ht 160 cm; Wt 65.9 kg
[~2020-10-02 08:43] MED LIST changes: +AZIT500T10 PO; -AZIT500T5 PO; +PANT40TA6 PO
--- NOTE | 2020-10-02 09:29 | NUR ---
ERP, Emmanuel made aware of pt's vital signs, awaiting orders.
[2020-10-02 10:02] VITALS: BP 117/72
== END 2020-10-02 10:41 | disposition home or self-care (01) ==
LOC: ED 10:35
DX: R05 Cough (principal); Z20.822 Contact with and (suspected) exposure to COVID-19
CPT/HCPCS: 71045; 87635; 99284